=== PATIENT | male | born 1935 | race Caucasian/White ===

== ENCOUNTER → 2016-08-06 | Day surgery (SDC) | payer MEDICARE ==
[~2016-08-06] MED LIST: LACTATED RINGER'S 1000 ML INJ 1,000 ML ONE; LIDOCAINE 1%/EPINEPHrine 1:100,000 SOLN 30 ML VIAL ONE; MIDAZOLAM HCL 2 MG/2 ML VIAL ONE; PROPOFOL 500 MG/50 ML BTL IV ONE
--- NOTE | 2016-08-06 11:22 | TN ---
cc: JOSE HERNANDEZ M.D. DATE OF SURGERY 08/06/2016 PREOPERATIVE DIAGNOSIS Left forehead headache, elevated C-reactive protein POSTOPERATIVE DIAGNOSES Left forehead headache, elevated C-reactive protein PROCEDURE Left temporal artery biopsy. SURGEON Dr. Jose Hernandez ANESTHESIA Local 1% lidocaine with epinephrine plus TIVA INDICATIONS This is a 80-year-old gentleman sent to me in consultation by Dr. Carranza of ophthalmology due to history of temporal headache and elevated CRP. A request was made for temporal artery biopsy. INTRAOPERATIVE FINDINGS Successful removal of a 2 cm segment of left temporal artery sent to pathology. ESTIMATED BLOOD LOSS Minimal DESCRIPTION OF PROCEDURE IN DETAIL The patient was identified as Finn Garcia, taken to the operating room, placed in the supine position. Sequential compression devices were placed on bilateral lower extremities. Following IV sedation by Anesthesia, the left temporal area was prepped and draped in the usual sterile fashion with Betadine. A time-out procedure was performed. Following completion time-out procedure everyone's satisfaction within the room, a Doppler was used to identify the location of left temporal artery. The proposed incision overlying it was made with a marking pen and infiltrated with local anesthetic. The incision was carried out with a scalpel and hemostasis controlled with electrocautery. Dissection continued deep through the temporal fascia until the temporal artery was identified. It felt a little bit rubbery and thickened. It was from surrounding tissues using tenotomy scissors and the proximal and distal margins of the visualized artery were cross-clamped with tiny right angle clamps and the intervening segment amputated and sent to pathology. Each end was tied with a 4-0 silk tie. The wound was irrigated copiously with the remaining local anesthetic. There was no evidence of bleeding. The wound was closed with interrupted inverted 4-0 Monocryl sutures. Dressings were applied with Mastisol and half inch brown Steri-Strips. Pressure was held at the surgical site for about a minute and half after surgery. There is no evidence of bleeding. The patient tolerated procedure without apparent complication. Sponge, needle and instrument counts were correct at the end of the case. MD CHUN Song/KIMBERLI /10:57 AM /11:03 AM
== END | disposition home or self-care (01) ==
LOC: ESDC 08:10
PROVIDERS: ATTEND Surgery Trauma Surgery
DX: R51 Headache (principal); R79.82 Elevated C-reactive protein (CRP)
CPT/HCPCS: 00352; 37609; 88305; J2250; J3010; J7120; 88304